=== PATIENT | male | born 1985 | race African-American/Black ===

== ENCOUNTER 2018-12-15 20:41 | Emergency (ER) | payer OTHER ==
[~2018-12-15] VITALS: Ht 172.7 cm; Wt 108.9 kg
[2018-12-15 21:37] VITALS: BP 119/72
== END 2018-12-15 23:16 | disposition home or self-care (01) ==
LOC: ER 20:41
DX: M62.838 Other muscle spasm (principal); R07.89 Other chest pain; M25.512 Pain in left shoulder; F17.210 Nicotine dependence, cigarettes, uncomplicated; V86.59XA Driver of other special all-terrain or other off-road motor vehicle injured in nontraffic accident, initial encounter; Y93.89 Activity, other specified; Y92.410 Unspecified street and highway as the place of occurrence of the external cause; Y99.8 Other external cause status
CPT/HCPCS: 71046

== ENCOUNTER 2019-09-18 12:30 | Emergency (ER) | payer OTHER ==
[~2019-09-18] VITALS: Ht 172.7 cm; Wt 99.8 kg
[2019-09-18 15:59] VITALS: BP 120/90
[2019-09-18] MEDS ORDERED: KETOROLAC TROMETH 60MG/2ML VIAL IM ONE (16:15)
[2019-09-18 16:50] LABS: Urine Bacteria NONE SEEN /hpf (None Seen); Urine Blood Negative /uL (Negative); Urine Specific Gravity 1.013 (1.001-1.035); Urine WBC 1 /hpf (0 - 3)
== END 2019-09-18 17:19 | disposition home or self-care (01) ==
LOC: ER 12:30
DX: N48.89 Other specified disorders of penis (principal); F17.210 Nicotine dependence, cigarettes, uncomplicated
CPT/HCPCS: 81001; 96372; 99283; J1885

== ENCOUNTER 2021-03-28 16:14 | Emergency (ER) | payer OTHER, MEDICAID ==
[~2021-03-28] VITALS: Ht 170.2 cm; Wt 83.9 kg
[2021-03-28 18:56] VITALS: BP 123/75
== END 2021-03-28 20:12 | disposition home or self-care (01) ==
LOC: ER 16:19 → UNDOADMIN 21:50 → TELE 21:50
DX: S29.012A Strain of muscle and tendon of back wall of thorax, initial encounter (principal); S39.012A Strain of muscle, fascia and tendon of lower back, initial encounter; F17.210 Nicotine dependence, cigarettes, uncomplicated; V09.9XXA Pedestrian injured in unspecified transport accident, initial encounter; Y93.01 Activity, walking, marching and hiking; Y92.481 Parking lot as the place of occurrence of the external cause; Y99.8 Other external cause status
CPT/HCPCS: 72070; 72100